=== PATIENT | female | born 1955 | race Caucasian/White ===

== ENCOUNTER → 2016-06-07 | Outpatient (CLI) | payer BC ==
[2016-06-07 10:18] VITALS: BP 123/72; PULSE 75; TEMP 98.5; BMI 29.0
--- NOTE | 2016-06-07 10:52 | P.GSHP ---
History of Present Illness H&P Date: 06/07/16 Chief Complaint: S/P lap RYGB Status post gastric bypass, BMI 29 60 years old female with morbid obesity , BMI 29.6, height 5 feet 3.5inches, weight 77kg status post laparoscopic Maria Del Carmen-en-Y gastric bypass and primary hiatal hernia repair. Postoperative GI bleeding and upper endoscopy showed patent anastomosis without any ulcers or active bleeding. She has received iron infusion therapy as outpatient and reports no fatique. No bloody bowel movements. She is tolerating diet. She has occasional diarrhea, no blood in stool. Known history of irritable bowel syndrome Her comorbid conditions include obstructive sleep apnea on CPAP, varicose veins bilateral lower extremities, hypercholesterolemia, GERD on proton pump inhibitor for 10 years( now resolved), bilateral knee replacement secondary to arthritis and depression. She lives at home with her and one child. Works with handicapped students. Vitamin A deficiency - On oral replacement [place] body weight: 53.29 KG Height 5 feet 3.5 inches Preoperative visit #1, 05/12/2015, weight 110.79 KG, BMI 42.6 Preoperative visit #2 07/21/2015, weight 101.1 KG, BMI 42.7 Preoperative visit #3 09/22/2015, weight 101.1KG, BMI 42.7 Laparoscopic Maria Del Carmen-en-Y gastric bypass on 10/04/2015 Postoperative visit #1 10/13/2015, weight 103 KG,BMI 39.6 Postoperative visit #2 10/27/2015, weight 98.5KG,BMI 37.9 Postoperative visit #3 04/12/2016, weight 77.065 KG, BMI 29.6 Postoperative visit #4 06/07/2015, weight 75.5KG, BMI 29 - Review of Systems Comment: Constitutional: Denies fever or loss of appetite HEENT: No difficulty in vision or hearing. Denies dysphagia. Cardiovascular: Denies chest pain, palpitations, dizziness, shortness of breath. Respiratory: No asthma or shortness of breath. Wears CPAP Gastrointestinal: Gastroesophageal reflux symptoms well controlled Integumentary: Known varicose veins. No ulcers Genitourinary: No urinary incontinence, hematuria or dysuria Neurologic: No seizures, denies weakness in upper or lower extremities Musculoskeletal: Status post bilateral knee replacements. Slightly restricted range of motion Psychiatry: Known history of depression, no suicidal ideation, no anxiety or psychosis Past Medical History Past Medical History: GERD/Reflux, GI Bleed, Hyperlipidemia, Osteoarthritis (OA) , Skin Disorder, Sleep Apnea/CPAP/BIPAP Additional Past Medical History / Comment(s): Migraines, IBS, Eczema, uses CPAP. SL BLEEDING IN STOOL POST-OP 09/2015. History of Any Multi-Drug Resistant Organisms: None Reported Past Surgical History: Bariatric Surgery, Breast Surgery, Cholecystectomy, Hernia Repair, Joint Replacement, Orthopedic Surgery, Tonsillectomy Additional Past Surgical History / Comment(s): LASER PROCEDURE FOR GLAUCOMA. BEBETO KNEE REPLACEMENT. RIGHT BREAST BIOPSY. ESOPHAGEAL DILITATION. KIDNEY STONE REMOVED. GASTRIC BYPASS 10/04/15, MARIA DEL CARMEN-EN-Y. Past Anesthesia/Blood Transfusion Reactions: No Reported Reaction Additional Past Anesthesia/Blood Transfusion Reaction / Comment(s): Spinal Headache Past Psychological History: Depression Smoking Status: Never smoker Past Alcohol Use History: None Reported Past Drug Use History: None Reported - Past Family History Mother Family Medical History: No Reported History Medications and Allergies Home Medications Medication Instructions Recorded Confirmed Type Multivitamins, Thera [Multivitamin] 1 tab PO DAILY 01/19/16 06/07/16 History Vitamin A 8,000 unit PO DAILY 02/01/16 06/07/16 History Vitamin B Complex 1 each PO DAILY 02/01/16 06/07/16 History ALPRAZolam [Xanax] 0.25 mg PO DAILY PRN 02/02/16 06/07/16 History Calcium Carbonate [Calcium] 600 mg PO DAILY 02/02/16 06/07/16 History DULoxetine HCL [Cymbalta] 1 tab PO DAILY 06/07/16 06/07/16 History Allergies Allergy/AdvReac Type Severity Reaction Status Date / Time No Known Allergies Allergy Verified 06/07/16 10:12 Surgical - Exam Vital Signs Temp Pulse BP 98.5 F 75 123/72 06/07/16 10:15 06/07/16 10:15 06/07/16 10:15 General: Patient is alert and oriented to time, place and person and cooperative with exam. She is not in acute distress. HEENT: Mild pallor, no icterus, no thyroid enlargement, no cervical lymphadenopathy. Chest: Bilateral equal breath sounds present. No wheezes, no crackles. Cardiovascular: Regular rate and rhythm. Abdomen: Soft, nontender, nondistended. No right upper quadrant tenderness. Well-healed surgical scars . No surgical site infection. Lower abdomen pannus Integumentary: Bilateral lower extremity varicose veins. No active ulcers or discharge. Neurologic: Cranial nerves II-XII intact. Strength upper and lower extremities 5/5. No focal neurologic deficits. Gait is normal. Psychiatric: No anxiety or psychosis. No suicidal thoughts. s Assessment and Plan (1) Arthritis Status: Acute (2) Depression Status: Acute (3) Hypercholesteremia Status: Acute (4) Obstructive sleep apnea of adult Status: Acute Plan: 1. Bariatric post op diet. Continue protein shakes 2. Try bariatric advantage MVI 3. Increase physical activity as tolerated 4. Follow up in 3 months with repeat lab draw
== END | disposition home or self-care (01) ==
LOC: BARWHC3 09:59
PROVIDERS: ATTEND Surgery
DX: Z48.815 Encounter for surgical aftercare following surgery on the digestive system (principal); Z98.84 Bariatric surgery status; Z68.29 Body mass index [BMI] 29.0-29.9, adult; G47.33 Obstructive sleep apnea (adult) (pediatric); Z99.89 Dependence on other enabling machines and devices; K58.9 Irritable bowel syndrome, unspecified; E50.9 Vitamin A deficiency, unspecified; K58.0 Irritable bowel syndrome with diarrhea; F32.9 Major depressive disorder, single episode, unspecified
CPT/HCPCS: 99211

== ENCOUNTER → 2016-09-22 | Outpatient (CLI) | payer OTHER ==
[2016-09-22 10:12] LABS: CH 29.3; CHCM 32.1; HCT 39.2 % (34.0-46.0); HDW 2.12; HGB 12.5 gm/dL (11.4-16.0); MCH 29.2 pg (25.0-35.0); MCHC 31.9 g/dL (31.0-37.0); MCV 91.5 fL (80.0-100.0); Mean Platelet Volume 8.1; RBC 4.29 m/uL (3.80-5.40); RDW 13.8 % (11.5-15.5); WBC 5.3 k/uL (3.8-10.6)
[2016-09-22 13:43] LABS: ALT 54 U/L (9-52); AST 39 U/L (14-36); Alkaline Phosphatase 88 U/L (38-126); Anion Gap 8 mmol/L; Blood Urea Nitrogen 16 mg/dL (7-17); Calcium 9.4 mg/dL (8.4-10.2); Carbon Dioxide 28 mmol/L (22-30); Chloride 108 mmol/L (98-107); Glucose 90 mg/dL (74-99); Iron 108 ug/dL (37-170); Non-African American GFR(MDRD) >60 (>60 ml/min/1.73 sqM); Potassium 4.6 mmol/L (3.5-5.1); Sodium 144 mmol/L (137-145); Total Bilirubin 2.4 mg/dL (0.2-1.3); Total Protein 6.7 g/dL (6.3-8.2)
[2016-09-22 14:00] LABS: % Iron Saturation 33.9 % (20-50); Total Iron Binding Capacity 319 ug/dL (265-497)
[2016-09-22 14:35] LABS: Vitamin B12 628 pg/mL (239-931)
== END | disposition home or self-care (01) ==
LOC: LABWHC1 09:41
PROVIDERS: ATTEND Surgery
DX: E66.01 Morbid (severe) obesity due to excess calories (principal); E44.0 Moderate protein-calorie malnutrition; E55.9 Vitamin D deficiency, unspecified
CPT/HCPCS: 36415; 80053; 82306; 82607; 82728; 83540; 83550; 84425; 84443; 84590; 85027

== ENCOUNTER 2016-10-02 08:44 | Emergency (ER) | payer OTHER ==
[2016-10-02 08:50] VITALS: BP 108/57; PULSE 73; RESP 20; TEMP 97.8
[2016-10-02] MEDS ORDERED: SODIUM CHLORIDE 0.9% 2,000 ML IV STA (09:00)
--- NOTE | 2016-10-02 09:07 | ED ---
Nausea/Vomiting/Diarrhea HPI - General Chief complaint: Nausea/Vomiting/Diarrhea Stated complaint: poss dehydration Time Seen by Provider: 10/02/16 08:53 Source: patient, RN notes reviewed Mode of arrival: ambulatory Limitations: no limitations - History of Present Illness Initial comments: This a 61-year-old female presents emergency Department with chief complaint of diarrhea. She states the last 8 days that she's had severe diarrhea she states at the beginning she was having 20 some episodes daily. She was started on Lomotil and Cipro by her PCP for 5 days ago and was states that has slowed her down to approximate 7-8 episodes daily but states that she still having symptoms. Patient was seen in the ER at [facility] had a CAT scan, lab work and stool studies and which they came back negative for C. diff what they're still pending cultures. Patient denies any antibiotic use prior to starting diarrhea and denies any traveling. She denies any dysuria or hematuria persisted decreased urine output. Patient was advised, emergency department today by PCP for possible dehydration. Patient states that she had a Maria Del Carmen-en-Y surgery by Dr. Ramirez one year ago and she has a follow-up appointment on Sunday. Patient denies fever, chills. Patient also had a prior cholecystectomy and has a history of IBS. - Related Data Home Medications Medication Instructions Recorded Confirmed Multivitamins, Thera [Multivitamin] 1 tab PO DAILY 01/19/16 10/02/16 Vitamin B Complex 1 cap PO DAILY 02/01/16 10/02/16 ALPRAZolam [Xanax] 0.125 - 0.25 mg PO BID PRN 02/02/16 10/02/16 DULoxetine HCL [Cymbalta] 60 mg PO DAILY 06/07/16 10/02/16 Calcium/Magnesium/Zinc 1 tab PO BID 10/02/16 10/02/16 [Xcseebd-Fzteycktx-Ecvx Tablet] Ciprofloxacin HCl [Cipro] 500 mg PO Q12HR 10/02/16 10/02/16 Cyanocobalamin (Vitamin B-12) 1,000 mcg PO DAILY 10/02/16 10/02/16 [Vitamin B-12] Diphenox-Atrop 2.5-0.025 mg 2 tab PO QID PRN 10/02/16 10/02/16 [Lomotil] Ondansetron [Zofran ODT] 8 mg PO Q8HR PRN 10/02/16 10/02/16 Vitamin A 10,000 unit PO DAILY 10/02/16 10/02/16 Previous Rx's Medication Instructions Recorded Azithromycin [Zithromax Z-pack] 0 mg PO DIRECTED #1 pack 10/02/16 Allergies Allergy/AdvReac Type Severity Reaction Status Date / Time No Known Allergies Allergy Verified 10/02/16 09:30 Review of Systems ROS Statement: Those systems with pertinent positive or pertinent negative responses have been documented in the HPI. ROS Other: All systems not noted in ROS Statement are negative. Past Medical History Past Medical History: GERD/Reflux, GI Bleed, Hyperlipidemia, Osteoarthritis (OA) , Skin Disorder, Sleep Apnea/CPAP/BIPAP Additional Past Medical History / Comment(s): Migraines, IBS, Eczema, uses CPAP. SL BLEEDING IN STOOL POST-OP 09/2015. History of Any Multi-Drug Resistant Organisms: None Reported Past Surgical History: Bariatric Surgery, Breast Surgery, Cholecystectomy, Hernia Repair, Joint Replacement, Orthopedic Surgery, Tonsillectomy Additional Past Surgical History / Comment(s): LASER PROCEDURE FOR GLAUCOMA. BEBETO KNEE REPLACEMENT. RIGHT BREAST BIOPSY. ESOPHAGEAL DILITATION. KIDNEY STONE REMOVED. GASTRIC BYPASS 10/04/15, MARIA DEL CARMEN-EN-Y. Past Anesthesia/Blood Transfusion Reactions: No Reported Reaction Additional Past Anesthesia/Blood Transfusion Reaction / Comment(s): Spinal Headache Past Psychological History: Depression Smoking Status: Never smoker Past Alcohol Use History: None Reported Past Drug Use History: None Reported - Past Family History Mother Family Medical History: No Reported History General Exam Limitations: no limitations General appearance: alert, in no apparent distress Neck exam: Present: normal inspection. Absent: tenderness, meningismus, lymphadenopathy Respiratory exam: Present: normal lung sounds bilaterally. Absent: respiratory distress, wheezes, rales, rhonchi, stridor Cardiovascular Exam: Present: regular rate, normal rhythm, normal heart sounds. Absent: systolic murmur, diastolic murmur, rubs, gallop, clicks GI/Abdominal exam: Present: soft, normal bowel sounds. Absent: distended, tenderness, guarding, rebound, rigid Back exam: Absent: CVA tenderness (R), CVA tenderness (L) Skin exam: Present: warm, dry, intact, normal color. Absent: rash Course Vital Signs 10/02/16 08:47 Temperature 97.8 F Pulse Rate 73 Respiratory 20 Rate Blood Pressure 108/57 O2 Sat by Pulse 99 Oximetry Medical Decision Making - Medical Decision Making I did obtain the records from [facility] and which she was positive for Campylobacter. Patient was placed on azithromycin as sometimes is resistant fluoroquinolones Patient will increase her fluids as she's been doing and follow-up with her surgeon on Sunday. Return parameters discussed. - Lab Data Result diagrams: 10/02/16 09:09 10/02/16 09:09 Lab Results 10/02/16 10/02/16 Range/Units 09:09 09:09 WBC 8.9 (3.8-10.6) k/uL RBC 4.90 (3.80-5.40) m/uL Hgb 14.2 (11.4-16.0) gm/dL Hct 43.6 (34.0-46.0) % MCV 89.0 (80.0-100.0) fL MCH 29.0 (25.0-35.0) pg MCHC 32.5 (31.0-37.0) g/dL RDW 13.5 (11.5-15.5) % Plt Count 353 (150-450) k/uL Neutrophils % 59 % Lymphocytes % 28 % Monocytes % 5 % Eosinophils % 5 % Basophils % 1 % Neutrophils # 5.3 (1.3-7.7) k/uL Lymphocytes # 2.5 (1.0-4.8) k/uL Monocytes # 0.5 (0-1.0) k/uL Eosinophils # 0.4 (0-0.7) k/uL Basophils # 0.1 (0-0.2) k/uL Sodium 145 (137-145) mmol/L Potassium 4.3 (3.5-5.1) mmol/L Chloride 109 H (98-107) mmol/L Carbon Dioxide 24 (22-30) mmol/L Anion Gap 12 mmol/L BUN 12 (7-17) mg/dL Creatinine 0.79 (0.52-1.04) mg/dL Est GFR (MDRD) Af Amer >60 (>60 ml/min/1.73 sqM) Est GFR (MDRD) Non-Af >60 (>60 ml/min/1.73 sqM) Glucose 93 (74-99) mg/dL Calcium 9.6 (8.4-10.2) mg/dL Total Bilirubin 1.3 (0.2-1.3) mg/dL AST 30 (14-36) U/L ALT 39 (9-52) U/L Alkaline Phosphatase 104 (38-126) U/L Total Protein 7.3 (6.3-8.2) g/dL Albumin 4.0 (3.5-5.0) g/dL Amylase 31 (30-110) U/L Lipase 133 (23-300) U/L Disposition Clinical Impression: Food poisoning, Campylobacter diarrhea Disposition: HOME SELF-CARE Condition: Stable Instructions: Acute Diarrhea (ED) Additional Instructions: Please return to the Emergency Department if symptoms worsen or any other concerns. Prescriptions: Azithromycin [Zithromax Z-pack] 0 mg PO DIRECTED #1 pack Referrals: Mik Hong MD [Primary Care Provider] - 1-2 days Time of Disposition: 11:13
[2016-10-02 09:21] LABS: Basophils # (A) 0.1 k/uL (0-0.2); Basophils % (A) 1 %; CH 29.6; CHCM 33.5; Eosinophils # (A) 0.4 k/uL (0-0.7); Eosinophils % (A) 5 %; HCT 43.6 % (34.0-46.0); HDW 2.65; HGB 14.2 gm/dL (11.4-16.0); Luc # (Auto) 0.26; Luc % (Auto) 3; Lymphocytes # (A) 2.5 k/uL (1.0-4.8); Lymphocytes % (A) 28 %; MCHC 32.5 g/dL (31.0-37.0); Mean Platelet Volume 7.1; Monocytes # (A) 0.5 k/uL (0-1.0); Monocytes % (A) 5 %; Neutrophils # (A) 5.3 k/uL (1.3-7.7); Neutrophils % (A) 59 %; RDW 13.5 % (11.5-15.5); WBC 8.9 k/uL (3.8-10.6); WBC (Perox) 8.66
[2016-10-02 09:32] LABS: ALT 39 U/L (9-52); AST 30 U/L (14-36); Alkaline Phosphatase 104 U/L (38-126); Amylase 31 U/L (30-110); Anion Gap 12 mmol/L; Blood Urea Nitrogen 12 mg/dL (7-17); Calcium 9.6 mg/dL (8.4-10.2); Carbon Dioxide 24 mmol/L (22-30); Chloride 109 mmol/L (98-107); Glucose 93 mg/dL (74-99); Non-African American GFR(MDRD) >60 (>60 ml/min/1.73 sqM); Potassium 4.3 mmol/L (3.5-5.1); Sodium 145 mmol/L (137-145); Total Bilirubin 1.3 mg/dL (0.2-1.3); Total Protein 7.3 g/dL (6.3-8.2)
== END 2016-10-02 11:28 | disposition home or self-care (01) ==
LOC: EC 08:44
DX: A04.5 Campylobacter enteritis (principal); T62.8X1A Toxic effect of other specified noxious substances eaten as food, accidental (unintentional), initial encounter; F32.9 Major depressive disorder, single episode, unspecified; Z79.899 Other long term (current) drug therapy; Z90.49 Acquired absence of other specified parts of digestive tract
CPT/HCPCS: 36415; 80053; 82150; 83690; 85025; 96360; 96361; 99284

== ENCOUNTER → 2016-10-04 | Outpatient (CLI) | payer BC, OTHER ==
[2016-10-04 08:26] VITALS: BP 111/74; PULSE 65; RESP 16; TEMP 97.4; BMI 26.5
--- NOTE | 2016-10-04 10:30 | P.GSHP ---
History of Present Illness H&P Date: 10/04/16 Chief Complaint: Diarrhea 61 years old female with h/o morbid obesity , BMI 26.5, height 5 feet 3.5inches , weight 69kg status post laparoscopic Maria Del Carmen-en-Y gastric bypass and primary hiatal hernia repair 09/2015 Postoperative GI bleeding and upper endoscopy showed patent anastomosis without any ulcers or active bleeding. She has received iron infusion therapy as outpatient .Known history of irritable bowel syndrome Her comorbid conditions include obstructive sleep apnea on CPAP- resolved , varicose veins bilateral lower extremities, hypercholesterolemia- resolved , GERD on proton pump inhibitor for 10 years( now resolved), bilateral knee replacement secondary to arthritis and depression. She lives at home with her and one child. Works with handicapped students. New onset diarrhea >15 episodes /day. recently went to ER. C. diff negative. Treated with oral cipro and Azithromycin. Diarrhea is resolving. No blood in stool. [place] body weight: 53.29 KG Height 5 feet 3.5 inches Preoperative visit #1, 05/12/2015, weight 110.79 KG, BMI 42.6 Preoperative visit #2 07/21/2015, weight 101.1 KG, BMI 42.7 Preoperative visit #3 09/22/2015, weight 101.1KG, BMI 42.7 Laparoscopic Maria Del Carmen-en-Y gastric bypass on 10/04/2015 Postoperative visit #1 10/13/2015, weight 103 KG,BMI 39.6 Postoperative visit #2 10/27/2015, weight 98.5KG,BMI 37.9 Postoperative visit #3 04/12/2016, weight 77.065 KG, BMI 29.6 Postoperative visit #4 06/07/2015, weight 75.5KG, BMI 29 Postoperative visit #5 10/04/2016, weight 69 KG, BMI 26.5 . - Review of Systems Comment: Constitutional: Denies fever or loss of appetite HEENT: No difficulty in vision or hearing. Denies dysphagia. Cardiovascular: Denies chest pain, palpitations, dizziness, shortness of breath. Respiratory: No asthma or shortness of breath. Wears CPAP Gastrointestinal: Gastroesophageal reflux symptoms well controlled Integumentary: Known varicose veins. No ulcers Genitourinary: No urinary incontinence, hematuria or dysuria Neurologic: No seizures, denies weakness in upper or lower extremities Musculoskeletal: Status post bilateral knee replacements. Slightly restricted range of motion Psychiatry: Known history of depression, no suicidal ideation, no anxiety or psychosis Past Medical History Past Medical History: GERD/Reflux, GI Bleed, Hyperlipidemia, Osteoarthritis (OA) , Skin Disorder, Sleep Apnea/CPAP/BIPAP Additional Past Medical History / Comment(s): Migraines, IBS, Eczema, uses CPAP. SL BLEEDING IN STOOL POST-OP 09/2015. History of Any Multi-Drug Resistant Organisms: None Reported Past Surgical History: Bariatric Surgery, Breast Surgery, Cholecystectomy, Hernia Repair, Joint Replacement, Orthopedic Surgery, Tonsillectomy Additional Past Surgical History / Comment(s): LASER PROCEDURE FOR GLAUCOMA. BEBETO KNEE REPLACEMENT. RIGHT BREAST BIOPSY. ESOPHAGEAL DILITATION. KIDNEY STONE REMOVED. GASTRIC BYPASS 10/04/15, MARIA DEL CARMEN-EN-Y. Past Anesthesia/Blood Transfusion Reactions: No Reported Reaction Additional Past Anesthesia/Blood Transfusion Reaction / Comment(s): Spinal Headache Past Psychological History: Depression Smoking Status: Never smoker - Past Family History Mother Family Medical History: No Reported History Medications and Allergies Home Medications Medication Instructions Recorded Confirmed Type Multivitamins, Thera [Multivitamin] 1 tab PO DAILY 01/19/16 10/02/16 History Vitamin B Complex 1 cap PO DAILY 02/01/16 10/02/16 History ALPRAZolam [Xanax] 0.125 - 0.25 mg PO BID PRN 02/02/16 10/02/16 History DULoxetine HCL [Cymbalta] 60 mg PO DAILY 06/07/16 10/02/16 History Calcium/Magnesium/Zinc 1 tab PO BID 10/02/16 10/02/16 History [Nvoswwd-Cxayvuqba-Duzf Tablet] Ciprofloxacin HCl [Cipro] 500 mg PO Q12HR 10/02/16 10/02/16 History Cyanocobalamin (Vitamin B-12) 1,000 mcg PO DAILY 10/02/16 10/02/16 History [Vitamin B-12] Diphenox-Atrop 2.5-0.025 mg 2 tab PO QID PRN 10/02/16 10/02/16 History [Lomotil] Ondansetron [Zofran ODT] 8 mg PO Q8HR PRN 10/02/16 10/02/16 History Vitamin A 10,000 unit PO DAILY 10/02/16 10/02/16 History Allergies Allergy/AdvReac Type Severity Reaction Status Date / Time No Known Allergies Allergy Verified 10/02/16 09:30 Surgical - Exam Vital Signs Temp Pulse Resp BP 97.4 F L 65 16 111/74 10/04/16 08:24 10/04/16 08:24 10/04/16 08:24 10/04/16 08:24 General: Patient is alert and oriented to time, place and person and cooperative with exam. She is not in acute distress. HEENT: Mild pallor, no icterus, no thyroid enlargement, no cervical lymphadenopathy. Chest: Bilateral equal breath sounds present. No wheezes, no crackles. Cardiovascular: Regular rate and rhythm. Abdomen: Soft, nontender, nondistended. No right upper quadrant tenderness. Well-healed surgical scars . No surgical site infection. Lower abdomen pannus. No panniculitis Integumentary: Bilateral lower extremity varicose veins. No active ulcers or discharge. Neurologic: Cranial nerves II-XII intact. Strength upper and lower extremities 5/5. No focal neurologic deficits. Gait is normal. Psychiatric: No anxiety or psychosis. No suicidal thoughts Assessment and Plan (1) Arthritis Status: Acute (2) Food poisoning Status: Acute (3) Depression Status: Acute (4) Overweight (BMI 25.0-29.9) Status: Acute Plan: 1. Status postoperative laparoscopic Maria Del Carmen-en-Y gastric bypass 2. Patient is holding off protein secondary to diarrhea at this time. Diarrhea is most likely infectious in origin. Resume bariatric diet once diarrhea has resolved 3. Increase water intake for hydration 4. Increase physical activity as tolerated 5. Continue daily multivitamin 6. Bilateral screening mammogram 7. Repeat CBC, CMP vitamin and mineral levels in 1 year. 8. Encourage attending bariatric support group meeting 9. Follow up in 1 year
== END | disposition home or self-care (01) ==
LOC: BARWHC3 07:55
PROVIDERS: ATTEND Surgery
DX: Z48.815 Encounter for surgical aftercare following surgery on the digestive system (principal); E66.3 Overweight; Z68.26 Body mass index [BMI] 26.0-26.9, adult; Z71.3 Dietary counseling and surveillance; Z98.84 Bariatric surgery status; Z79.899 Other long term (current) drug therapy; F32.9 Major depressive disorder, single episode, unspecified; R19.7 Diarrhea, unspecified; G47.30 Sleep apnea, unspecified; Z99.89 Dependence on other enabling machines and devices; E78.5 Hyperlipidemia, unspecified; M17.0 Bilateral primary osteoarthritis of knee; Z96.653 Presence of artificial knee joint, bilateral
CPT/HCPCS: 97803; 99211

== ENCOUNTER → 2016-12-04 | Outpatient (CLI) | payer OTHER ==
--- NOTE | 2016-12-05 09:07 | MM ---
Reason for exam: screening (asymptomatic). Last mammogram was performed 1 year and 2 months ago. History: Patient is postmenopausal. Benign MG stereo VAD BX RT of the right breast, September 11, 2014. Physical Findings: A clinical breast exam by your physician is recommended on an annual basis and results should be correlated with mammographic findings. MG Screening Mammo w CAD Bilateral CC and MLO view(s) were taken. Prior study comparison: October 01, 2015, bilateral MG screening mammo w CAD. June 01, 2015, right breast MG 3d diag mammo w/cad RT. The breast tissue is heterogeneously dense. This may lower the sensitivity of mammography. There is no discrete abnormality. No significant changes when compared with prior studies. ASSESSMENT: Negative, BI-RAD 1 RECOMMENDATION: Routine screening mammogram of both breasts in 1 year.
== END | disposition home or self-care (01) ==
LOC: RADMAMWWP 07:48
PROVIDERS: ATTEND Family Medicine
DX: Z12.31 Encounter for screening mammogram for malignant neoplasm of breast (principal)

== ENCOUNTER → 2018-03-27 | Outpatient (CLI) | payer OTHER ==
[2018-03-27 17:19] VITALS: BP 152/82; PULSE 69; RESP 16; TEMP 98; BMI 28.0
--- NOTE | 2018-03-27 17:46 | P.PN ---
Subjective Progress Note Date: 03/27/18 HPI: She comes in with liquid stools from a gastric bypass. Las time seen by Dr. Haro was 1.5 years ago. She feels full after eating. Highest weight of 248 pounds. Lowest weight of 152 pounds after surgery. She reports gas bloat and early satiety. Gaseous distention. She reports stinky gas. Her surgery was 2016. She has IBS. Gallbladder is gone. Last colonoscopy by Dr. Ramirez no polyps. Her mother had colitis. Her brother had colon. No blood in stools. Dinner last night of chili and dog with mustard and had water. No diarrhea. She has diarrhea 3 to 5 x daily. Morning she would have normal bowel movement ABDOMEN: PLAN: 1. Colonoscopy for colitis 2. Gluten allergy 3. Upper scope for gluten and celiac 4. Get labs 5. Stool assay Objective - Vital Signs Vital signs: Vital Signs Temp 98 F 03/27/18 17:16 Pulse 69 03/27/18 17:16 Resp 16 03/27/18 17:16 BP 152/82 03/27/18 17:16 Pulse Ox Intake & Output 03/26/18 03/27/18 03/27/18 18:59 06:59 18:59 Weight 73.028 kg
== END ==
LOC: BARWHC3 15:46
PROVIDERS: ATTEND Surgery Plastic and Reconstructive Surgery
DX: K95.89 Other complications of other bariatric procedure (principal)
CPT/HCPCS: 99211

== ENCOUNTER 2018-04-22 09:42 | Day surgery (SDC) | payer BC, OTHER ==
[2018-04-17 14:35] VITALS: BMI 28.0
--- NOTE | 2018-04-22 06:14 | P.GSHP ---
History of Present Illness H&P Date: 04/22/18 CHIEF COMPLAINT: GERD and colitis HISTORY OF PRESENT ILLNESS: The patient is a 62-year-old female who presents with gastroesophageal reflux disease and colitis. Upper and lower endoscopy were offered for further evaluation and management. PAST MEDICAL HISTORY: Please see list. PAST SURGICAL HISTORY: Please see list. MEDICATIONS: Please see list. ALLERGIES: Please see list. SOCIAL HISTORY: No illicit drug use FAMILY HISTORY: Positive for ulcerative colitis. REVIEW OF ORGAN SYSTEMS: CONSTITUTIONAL: No reports of fevers or chills. PHYSICAL EXAM: VITAL SIGNS: Stable GENERAL: Well-developed pleasant in no acute distress. HEENT: No scleral icterus. Extraocular movements grossly intact. Moist buccal mucosa. NECK: Supple without lymphadenopathy. CHEST: Unlabored respirations. Equal bilateral excursions. CARDIOVASCULAR: Regular rate and rhythm. Distal 2+ pulses. ABDOMEN: Soft, nondistended. MUSCULOSKELETAL: No clubbing, cyanosis, or edema. ASSESSMENT: 1. Gastroesophageal reflux disease 2. Colitis PLAN: 1. Recommend proceeding with an upper and lower endoscopy Past Medical History Past Medical History: GERD/Reflux, GI Bleed, Hyperlipidemia, Osteoarthritis (OA) , Skin Disorder, Sleep Apnea/CPAP/BIPAP Additional Past Medical History / Comment(s): Migraines, IBS, Eczema, uses CPAP. SL BLEEDING IN STOOL POST-OP 09/2015. History of Any Multi-Drug Resistant Organisms: None Reported Past Surgical History: Bariatric Surgery, Breast Surgery, Cholecystectomy, Hernia Repair, Joint Replacement, Orthopedic Surgery, Tonsillectomy Additional Past Surgical History / Comment(s): LASER PROCEDURE FOR GLAUCOMA. BEBETO KNEE REPLACEMENT. RIGHT BREAST BIOPSY. ESOPHAGEAL DILITATION. KIDNEY STONE REMOVED. GASTRIC BYPASS 10/04/15, LALO-EN-Y. Past Anesthesia/Blood Transfusion Reactions: No Reported Reaction Additional Past Anesthesia/Blood Transfusion Reaction / Comment(s): Spinal Headache Smoking Status: Never smoker - Past Family History Mother Family Medical History: No Reported History Medications and Allergies Home Medications Medication Instructions Recorded Confirmed Type Multivitamins, Thera [Multivitamin] 1 tab PO DAILY 01/19/16 04/17/18 History ALPRAZolam [Xanax] 0.125 - 0.25 mg PO BID PRN 02/02/16 04/17/18 History DULoxetine HCL [Cymbalta] 60 mg PO QAM 06/07/16 04/17/18 History Allergies Allergy/AdvReac Type Severity Reaction Status Date / Time No Known Allergies Allergy Verified 04/17/18 14:33
[~2018-04-22 09:42] MED LIST: LACTATED RINGERS 1,000 ML IV SCH; LIDOCAINE 1% 20 ML VIAL (10MG/ML) FOR IV START INTRADERMA PRN
[2018-04-22 10:18] VITALS: RESP 16; TEMP 96.8
[2018-04-22] MEDS ORDERED: PROPOFOL 10 MG/ML 20 ML VIAL IV ONE (11:18)
--- NOTE | 2018-04-22 11:39 | P.PCN ---
Date of Procedure: 04/22/18 Description of Procedure: PREOPERATIVE DIAGNOSIS: Colitis with frequent diarrhea Family history of colitis POSTOPERATIVE DIAGNOSIS: Colitis with frequent diarrhea Family history of colitis OPERATION: Colonoscopy with random cold forceps biopsy Colonoscopy to the ileocecal valve and appendiceal orifice. SURGEON: Adelaide Gordon MD. ANESTHESIA: MAC. INDICATIONS: The patient is a 62-year-old female who presents with change in bowel habits and family history of colitis. Benefits and risks were described and informed consent was obtained. DESCRIPTION OF PROCEDURE: The patient had undergone Gatorade, MiraLAX and Dulcolax prep. She had been brought into the operating room and laid in the left lateral decubitus position. After adequate intravenous sedation, the rectum was examined with 2% lidocaine jelly. No external hemorrhoids were encountered. The rectal tone was within normal limits. No lesions were palpated in the rectal vault. An Olympus colonoscope was advanced until the ileocecal valve and appendiceal orifice were clearly viewed. The prep was excellent with clear visualization of the mucosal folds. The scope was removed with visualization of each mucosal fold. No scattered diverticulosis was encountered. No colonic polyps were found. Random biopsies were obtained for microscopic colitis. Retroflexion of the scope demonstrated grade 1 internal hemorrhoids without active bleeding or inflammation. The colon was desufflated. The patient had tolerated the procedure well. Withdrawal time was over 6 minutes. FINDINGS: Internal hemorrhoids, grade 1 No external prolapsed hemorrhoids. No arteriovenous malformations. No adenomatous polyps. No sigmoid diverticulosis Random biopsies were obtained for microscopic colitis. RECOMMENDATIONS: Lower endoscopy in 5 years2023 Plan - Discharge Summary New Discharge Prescriptions: No Action Multivitamins, Thera [Multivitamin] 1 tab PO DAILY ALPRAZolam [Xanax] 0.125 - 0.25 mg PO BID PRN PRN Reason: Anxiety DULoxetine HCL [Cymbalta] 60 mg PO QAM Discharge Medication List Multivitamins, Thera [Multivitamin] 1 tab PO DAILY 01/19/16 [History] ALPRAZolam [Xanax] 0.125 - 0.25 mg PO BID PRN 02/02/16 [History] DULoxetine HCL [Cymbalta] 60 mg PO QAM 06/07/16 [History]
[2018-04-22 12:38] VITALS: BP 115/72; PULSE 69
== END 2018-04-22 12:36 | disposition home or self-care (01) ==
LOC: ORWHC2ENDO 09:42
PROVIDERS: ATTEND Surgery Plastic and Reconstructive Surgery
DX: K64.0 First degree hemorrhoids (principal); K58.0 Irritable bowel syndrome with diarrhea; Z87.19 Personal history of other diseases of the digestive system; Z83.79 Family history of other diseases of the digestive system; K21.9 Gastro-esophageal reflux disease without esophagitis; E78.5 Hyperlipidemia, unspecified; M19.90 Unspecified osteoarthritis, unspecified site; G47.33 Obstructive sleep apnea (adult) (pediatric); G43.909 Migraine, unspecified, not intractable, without status migrainosus; L30.9 Dermatitis, unspecified; Z79.899 Other long term (current) drug therapy; Z99.89 Dependence on other enabling machines and devices; Z98.84 Bariatric surgery status; Z96.653 Presence of artificial knee joint, bilateral; Z90.49 Acquired absence of other specified parts of digestive tract; Z87.442 Personal history of urinary calculi
CPT/HCPCS: 88305; 45380; J2704

== ENCOUNTER → 2019-03-12 | Outpatient (CLI) | payer BC ==
--- NOTE | 2019-03-12 13:09 | MM ---
Reason for exam: screening (asymptomatic). Last mammogram was performed 2 years and 3 months ago. History: Patient is postmenopausal. Benign MG stereo VAD BX RT of the right breast, September 11, 2014. Physical Findings: A clinical breast exam by your physician is recommended on an annual basis and results should be correlated with mammographic findings. MG Screening Mammo w CAD Bilateral CC and MLO view(s) were taken. Prior study comparison: December 04, 2016, bilateral MG screening mammo w CAD. October 01, 2015, bilateral MG screening mammo w CAD. The breast tissue is heterogeneously dense. This may lower the sensitivity of mammography. Previous mammotome biopsy in the right breast. There is chronic nodularity bilaterally. There is no discrete abnormality. ASSESSMENT: Benign, BI-RAD 2 RECOMMENDATION: Routine screening mammogram of both breasts in 1 year.
== END ==
LOC: RADMAMWWP 11:00
PROVIDERS: ATTEND Family Medicine
DX: Z12.31 Encounter for screening mammogram for malignant neoplasm of breast (principal)
CPT/HCPCS: 77067

== ENCOUNTER → 2019-05-07 | Outpatient (CLI) | payer BC ==
--- NOTE | 2019-05-07 13:33 | CT ---
EXAMINATION TYPE: CT brain wo con DATE OF EXAM: 05/07/2019 COMPARISON: HISTORY: Dizziness CT DLP: 1036.00 mGycm Automated exposure control for dose reduction was used. Helical imaging through the brain using depar tmental protocol FINDINGS: There is an air-fluid level in the right maxillary sinus. Calvarium is intact. There is no hemorrhage or hydrocephalus. Mild atrophy is likely due to age-related change. IMPRESSION: NO ACUTE ABNORMALITIES EVIDENT.
== END | disposition home or self-care (01) ==
LOC: RADCTMAIN 12:27
PROVIDERS: ATTEND Nurse Practitioner Adult Health
DX: R42 Dizziness and giddiness (principal); G40.909 Epilepsy, unspecified, not intractable, without status epilepticus
CPT/HCPCS: 36415; 70450

== ENCOUNTER → 2019-05-09 | Outpatient (CLI) | payer BC ==
--- NOTE | 2019-05-12 08:24 | EEG ---
ELECTROENCEPHALOGRAM REPORT PROCEDURE DATE: 05/09/2019 ELECTROENCEPHALOGRAM (EEG) REPORT: TECHNIQUE: A routine 18 channel EEG was performed with video using the 10/20 international electrode placement system. HISTORY: Episode on 05/07/2019 where patient was working and started having an unusual feeling. Patient could not focus and felt like she was going to pass out. [place] like her head was jerking to the right. Other medical history includes headaches. CURRENT MEDICATIONS: Multivitamin, ropinirole, Cymbalta. STUDY DURATION: 25 minutes. FINDINGS: BACKGROUND: The background activity consists of 8-9 hertz rhythmic waveforms symmetrically distributed over both posterior quadrants. ACTIVATION: Hyperventilation: Not performed. Photic stimulation: Symmetric driving seen. Sleep: Drowsy. ABNORMALITIES: None. IMPRESSION: Normal EEG. No epileptiform activity was present. No seizures were recorded. MMODL / IJN: [id number] / MTDD
== END | disposition home or self-care (01) ==
LOC: NEUROMAIN 08:55
PROVIDERS: ATTEND Family Medicine
DX: G40.909 Epilepsy, unspecified, not intractable, without status epilepticus (principal)
CPT/HCPCS: 95819

== ENCOUNTER → 2020-03-17 | Outpatient (CLI) | payer BC ==
--- NOTE | 2020-03-19 10:17 | MM ---
Reason for exam: screening (asymptomatic). Last mammogram was performed 1 year ago. History: Patient is postmenopausal. Benign MG stereo VAD BX RT of the right breast, September 11, 2014. Physical Findings: A clinical breast exam by your physician is recommended on an annual basis and results should be correlated with mammographic findings. MG Screening Mammo w CAD Bilateral CC and MLO view(s) were taken. Prior study comparison: March 12, 2019, bilateral MG screening mammo w CAD. December 04, 2016, bilateral MG screening mammo w CAD. The breast tissue is heterogeneously dense. This may lower the sensitivity of mammography. Previous mammotome biopsy in the right breast. There is chronic nodularity in the right breast. Dense tissues anteriorly on a background of scattered densities. Increasing grouped calcifications at the site of two small low density nodules on the right, suspect degenerating fibroids. Magnification view recommended. ASSESSMENT: Incomplete: need additional imaging evaluation, BI-RAD 0 RECOMMENDATION: Special view mammogram of the right breast. (magnification) If lesion persists on supplemental views, image directed ultrasound is recommended. [facility] will attempt to contact patient to return for supplemental views and ultrasound if indicated.
== END | disposition home or self-care (01) ==
LOC: RADMAMWWP 16:11
PROVIDERS: ATTEND Family Medicine
DX: Z12.31 Encounter for screening mammogram for malignant neoplasm of breast (principal)
CPT/HCPCS: 77067

== ENCOUNTER → 2020-03-23 | Outpatient (CLI) | payer BC ==
--- NOTE | 2020-03-23 10:15 | MM ---
Reason for exam: additional evaluation requested from abnormal screening. Last mammogram was performed less than 1 month ago. History: Patient is postmenopausal. Benign MG stereo VAD BX RT of the right breast, September 11, 2014. Physical Findings: Nurse did not find any significant physical abnormalities on exam. MG Work Up Mamm w CAD RT CC with magnification, MLO with magnification, and ML view(s) were taken of the right breast. Prior study comparison: March 17, 2020, bilateral MG screening mammo w CAD. March 12, 2019, bilateral MG screening mammo w CAD. Finding: There are two intermediate concern, suspicious 2mm and 4 mm equal density (isodense), round masses located 5 cm and 11 cm from the nipple in the upper outer quadrant of the right breast. New finding since March 17, 2020 and March 12, 2019. These results were verbally communicated with the patient and result sheet given to the patient on 03/23/20. ASSESSMENT: Incomplete: need additional imaging evaluation, BI-RAD 0 RECOMMENDATION: Ultrasound of the right breast.
--- NOTE | 2020-03-23 10:18 | USB ---
Reason for exam: additional evaluation requested from abnormal screening. History: Patient is postmenopausal. Benign MG stereo VAD BX RT of the right breast, September 11, 2014. US Breast Workup Limited RT Right limited breast ultrasound including focal area of concern, retroareolar and axilla demonstrates a 0.6 x 0.2 x 0.4cm oval, solid, hypoechoic lesion at 11 o'clock. These results were verbally communicated with the patient and result sheet given to the patient on 03/23/20. ASSESSMENT: Suspicious, BI-RAD 4 RECOMMENDATION: Stereotactic core biopsy of the right breast. Called Dr. Gómez's office with mammographic findings and has scheduled an appointment for the patient for 04/28/19 at 4:[address] Singh. Biopsy scheduled for 04/05/20 at 8:00. PRELIMINARY REPORT CALLED AND FAXED TO DR. SINGH ON 03/23/20.
== END | disposition home or self-care (01) ==
LOC: RADMAMWWP 07:53
PROVIDERS: ATTEND Family Medicine
DX: R92.8 Other abnormal and inconclusive findings on diagnostic imaging of breast (principal)
CPT/HCPCS: 77065

== ENCOUNTER → 2020-04-14 | Day surgery (SDC) | payer BC ==
[2020-04-14 09:57] VITALS: BP 117/76; PULSE 75; RESP 18; TEMP 98.2
--- NOTE | 2020-04-14 19:15 | MM ---
EXAMINATION TYPE: MG stereo VAD BX RT DATE OF EXAM: 04/14/2020 COMPARISON: 03/23/2020 CLINICAL HISTORY: 64-year-old female referred for to site stereotactic core needle biopsy of the righ t breast for grouped microcalcifications. TECHNIQUE: Stereotactic guided core biopsy of the right breast. FINDINGS: The procedure of stereotactic guided core biopsy was explained to the patient. Benefits, a lternatives, and risks were discussed. An informed consent was then obtained. Site 1: Posterior upper-outer quadrant via a CC from above approach. Biopsy was aborted after initial needle placement demonstrated hematoma formation displacing the calcifications from the intended tar get site. When the biopsy needle was withdrawn in order to retarget, excessive bleeding was encounter ed. The patient was removed from compression and placed supine. 10 to 15 minutes of direct compressio n was applied and hemostasis obtained. As both groups of calcifications have a similar appearance, if site 2 results return benign, six-month follow-up can be performed of these site 1 microcalcificatio ns. Site 2: 6:00 central microcalcifications from a CC from below approach. I performed the localization followed by the remainder of the procedure. A vacuum assisted biopsy gun was used to obtain 5 core s amples. Targeted calcifications are identified in specimen mammogram. However, post biopsy mammogram shows ap proximately 3 cm of inferior clip migration relative to the targeted area of concern on the preproced ure images. Postprocedure mammogram also shows successful abatement of the upper outer quadrant hematoma. The patient tolerated the procedure well without any immediate complication. The patient was kept in the radiology department for short stay after the procedure and then discharged home in stable condi tion. IMPRESSION: 1. SITE 1 BIOPSY OF THE POSTERIOR UOQ MICROCALCIFICATIONS ABORTED AFTER HEMATOMA FORMATION AND EXCESS JB BLEEDING. GIVEN THAT THESE MICROCALCIFICATIONS HAVE A SIMILAR MORPHOLOGY TO SITE 2 MICROCALCIFICA TIONS, A 6 MONTH FOLLOW-UP CAN BE PERFORMED IF PATHOLOGY RETURNS BENIGN RESULTS. 2. SUCCESSFUL, UNCOMPLICATED STEREOTACTIC GUIDED CORE BIOPSY OF THE MORE ANTERIOR 6:00 CENTRAL MICROC ALCIFICATIONS. FULL PATHOLOGY RESULTS TO FOLLOW. NOTE 3 CM OF INFERIOR CLIP MIGRATION.
== END ==
LOC: RADMAMWWP 04-05 06:59
PROVIDERS: ATTEND Surgery
DX: R92.8 Other abnormal and inconclusive findings on diagnostic imaging of breast (principal)
CPT/HCPCS: 19081; A4648; J2001; 88305

== ENCOUNTER → 2020-05-17 | Outpatient (CLI) | payer BC ==
[2020-05-17 22:55] LABS: HCT 35.2 % (37.2-46.3); HGB 10.3 g/dL (12.0-15.0); MCH 22.7 pg (27.0-32.0); MCHC 29.3 g/dL (32.0-37.0); MCV 77.7 fL (80.0-97.0); Mean Platelet Volume 12.8 fL (9.5-12.2); Platelet Count 316 X 10*3/uL (140-440); RBC 4.53 X 10*6/uL (4.10-5.20); RDW 14.9 % (11.5-14.5)
[2020-05-18 01:53] LABS: African American GFR (CKD) 91.6 (60.0-200.0); Albumin 4.6 g/dL (3.80-4.90); Anion Gap 8.7 mmol/L (4.00-12.00); Calcium 9.3 mg/dL (8.7-10.3); Carbon Dioxide 26.3 mmol/L (21.6-31.8); Globulin 2.3 g/dL (1.6-3.3); Potassium 5.1 mmol/L (3.5-5.5); Total Protein 6.9 g/dL (6.2-8.2)
[2020-05-18 04:30] LABS: Hemoglobin A1C 5.8 % (4.0-6.0)
[2020-05-18 05:22] LABS: INR 0.95 (0.90-1.11); Partial Thromboplastin Time 26.2 sec (23.5-31.0); Prothrombin Time 10.4 sec (9.9-11.9)
== END | disposition home or self-care (01) ==
LOC: LABWHC1 15:37
PROVIDERS: ATTEND Physician Assistant
DX: Z01.818 Encounter for other preprocedural examination (principal); M19.90 Unspecified osteoarthritis, unspecified site; D64.9 Anemia, unspecified
CPT/HCPCS: 36415; 80053; 83036; 85027; 85610; 85730; 86850; 86900; 86901; 87070

== ENCOUNTER → 2020-07-15 | Outpatient (CLI) | payer BC ==
--- NOTE | 2020-07-16 13:18 | MM ---
Reason for exam: follow-up at short interval from prior study. Last mammogram was performed 4 months ago. History: Patient is postmenopausal. Benign MG stereo VAD BX RT of the right breast, April 14, 2020. Benign MG stereo VAD BX RT of the right breast, September 11, 2014. Physical Findings: Nurse did not find any significant physical abnormalities on exam. MG 3D Diag Mammo W/Cad RT Spot compression CC, spot compression MLO, and XCCL view(s) were taken of the right breast. Prior study comparison: March 23, 2020, right breast MG work up mamm w CAD RT. March 17, 2020, bilateral MG screening mammo w CAD. There are scattered fibroglandular densities. Finding: There are punctate, round, grouped/clustered calcifications in the right breast x 2. Previous mammotome biopsy in the right breast x 2. No significant changes in finding since March 23, 2020 and March 17, 2020. These results were verbally communicated with the patient and result sheet given to the patient on 07/15/20. ASSESSMENT: Benign, BI-RAD 2 RECOMMENDATION: Follow-up diagnostic mammogram of both breasts in 8 months. Back on schedule for March 2021.
--- NOTE | 2020-07-16 13:19 | USB ---
Reason for exam: additional evaluation requested from abnormal screening. History: Patient is postmenopausal. Benign MG stereo VAD BX RT of the right breast, April 14, 2020. Benign MG stereo VAD BX RT of the right breast, September 11, 2014. US Breast Limited RT Technologist: Hailey Sinclair Right limited breast ultrasound including focal area of concern, retroareolar and axilla demonstrates a 0.7 x 0.5 x 0.3cm hypoechoic lesion at 11 o'clock. Scanned 6-12 o'clock. These results were verbally communicated with the patient and result sheet given to the patient on 07/15/20. ASSESSMENT: Benign, BI-RAD 2 RECOMMENDATION: Follow-up diagnostic mammogram of both breasts in 8 months. Back on schedule for March 2021.
== END | disposition home or self-care (01) ==
LOC: RADMAMWWP 12:43
PROVIDERS: ATTEND Surgery
DX: R92.1 Mammographic calcification found on diagnostic imaging of breast (principal); N64.59 Other signs and symptoms in breast; Z78.0 Asymptomatic menopausal state
CPT/HCPCS: 77061; 77065

== ENCOUNTER → 2021-09-28 | Outpatient (CLI) | payer MEDICARE ==
--- NOTE | 2021-09-28 10:40 | MM ---
Reason for Exam: Follow-up at short interval from prior study. Last mammogram was performed 1 year(s) and 6 month(s) ago. Patient History: Menarche at age 16. First Full-Term at age 31. Postmenopausal. 04/14/2020, Benign Core Biopsy on the right side. 09/11/2014, Benign Core Biopsy on the right side. Risk Values: Dari 5 year model risk: 2.5%. NCI Lifetime model risk: 9.7%. Tissue Density: There are scattered fibroglandular densities. Findings: Analyzed By CAD. Biopsy clip right breast redemonstrated. Occasional scattered and grouped benign-appearing calcifications bilaterally redemonstrated. Stable small nodularity in the left breast on MLO view. No distortion or new worrisome group of microcalcifications. Overall Assessment: Benign, BI-RAD 2 Management: Screening Mammogram of both breasts in 1 year. A clinical breast exam by your physician is recommended on an annual basis and results should be correlated with mammographic findings. This exam should not preclude additional follow-up of suspicious palpable abnormalities. Results were given to the patient verbally at the time of exam. Electronically signed and approved by: Víctor Stockton M.D.
== END | disposition home or self-care (01) ==
LOC: RADMAMWWP 09:59
PROVIDERS: ATTEND Family Medicine
DX: R92.8 Other abnormal and inconclusive findings on diagnostic imaging of breast (principal)
CPT/HCPCS: 77066; G0279; 77062

== ENCOUNTER → 2022-05-15 | Outpatient (CLI) | payer MEDICARE ==
--- NOTE | 2022-05-17 11:20 | MR ---
EXAMINATION TYPE: MR brain wo/w con DATE OF EXAM: 05/15/2022 9:02 AM CLINICAL INDICATION:Female, 66 years old with history of R25.1 TREMOR, UNSPECIFIED; Tremors COMPARISON: None TECHNIQUE: Multi planar, multi sequence imaging was performed through the brain including: T1, T2, In version recovery, susceptibility weighted imaging and gradient echo imaging and Diffusion weighted im aging. The patient was then given intravenous contrast and multi planar, T1 fat-saturation images wer e obtained. IV Contrast: 8.5 cc Gadavist FINDINGS: The copeland-white junctions, ventricular system, basal cisterns appear unremarkable. Diffusion-weighted imaging shows no evidence of restricted diffusion to suggest acute/subacute infarct. Intracranial art erial flow voids are maintained. Midline structures show no abnormality. Scattered foci of high T2 si gnal intensity are seen within the periventricular white matter. The susceptibility weighted images d o not reveal any evidence for micro-hemorrhage. There is blooming artifact within the anterior aspect of the right putamen measuring 9 x 7. After administration of gadolinium, no abnormal enhancement is seen. The bone marrow signal is within normal limits. Paranasal sinuses and mastoid air cells: No significant paranasal sinus disease. Visualized orbits: Orbital contents are intact. IMPRESSION: 1. No evidence of intracranial mass, acute/subacute infarct, or abnormal enhancement. 2. Nonspecific right putamen blooming artifact suggesting mineralization. 3. Nonspecific white matter changes, likely related to small vessel ischemic disease
== END | disposition home or self-care (01) ==
LOC: RADMRIMAIN 07:50
PROVIDERS: ATTEND Family Medicine
DX: R90.82 White matter disease, unspecified (principal); R25.1 Tremor, unspecified
CPT/HCPCS: 70553; A9585

== ENCOUNTER → 2022-08-14 | Outpatient (CLI) | payer MEDICARE ==
[2022-08-14 19:31] LABS: Anion Gap 12.4 mmol/L (10.00-18.00); BUN/Creat Ratio 16.67 Ratio (12.00-20.00); Blood Urea Nitrogen 14.8 mg/dL (9.0-27.0); Calcium 8.9 mg/dL (8.7-10.3); Carbon Dioxide 23.9 mmol/L (20.0-27.5); Non-African American GFR(CKD) 68.2 (60.0-200.0); Potassium 4.4 mmol/L (3.5-5.5)
== END | disposition home or self-care (01) ==
LOC: LABWHC1 10:44
PROVIDERS: ATTEND Student in an Organized Health Care Education/Training Program
DX: I87.2 Venous insufficiency (chronic) (peripheral) (principal); I47.1 Supraventricular tachycardia; G47.33 Obstructive sleep apnea (adult) (pediatric); R42 Dizziness and giddiness; R00.2 Palpitations
CPT/HCPCS: 36415; 80048; 83735; 84443

== ENCOUNTER → 2022-09-29 | Outpatient (CLI) | payer MEDICARE ==
--- NOTE | 2022-10-02 07:49 | MM ---
Reason for Exam: Screening (asymptomatic). Last screening mammogram was performed 12 month(s) ago. Patient History: Menarche at age 16. First Full-Term at age 31. Postmenopausal. 04/14/2020, Benign Core Biopsy on the right side. 09/11/2014, Benign Core Biopsy on the right side. Risk Values: Dari 5 year model risk: 2.5%. NCI Lifetime model risk: 9.4%. Prior Study Comparison: 03/23/2020 Right Diagnostic Mammogram, [facility]. 07/15/2020 Right Diagnostic Mammogram, [facility]. 09/28/2021 Bilateral MG 3D diag mammo w/cad [facility], [facility]. Tissue Density: The breast tissue is heterogeneously dense. This may lower the sensitivity of mammography. Findings: Analyzed By CAD. Right breast biopsy clips. There is no suspicious group of microcalcifications or new suspicious mass in either breast.Right breast biopsy clips. Benign-appearing calcific patient's. There is no suspicious group of microcalcifications or new suspicious mass in either breast. Overall Assessment: Benign, BI-RAD 2 Management: Screening Mammogram of both breasts in [address] [facility] will attempt to contact patient to return for supplemental views and ultrasound if indicated. Patient should continue monthly self-breast exams. A clinical breast exam by your physician is recommended on an annual basis. This exam should not preclude additional follow-up of suspicious palpable abnormalities. Note on Dari scores and lifetime risk: 1. A Dari score greater than 3% is considered moderate risk. If this is the case, consider specialist referral to assess eligibility for a risk reducing agent. 2. If overall lifetime risk for the development of breast cancer is 20% or higher, the patient may qualify for future screening with alternating mammogram and breast MRI. Electronically signed and approved by: Quang Moraes DO
== END | disposition home or self-care (01) ==
LOC: RADMAMWWP 10:14
PROVIDERS: ATTEND Family Medicine
DX: Z12.31 Encounter for screening mammogram for malignant neoplasm of breast (principal); Z78.0 Asymptomatic menopausal state
CPT/HCPCS: 77063; 77067

== ENCOUNTER → 2022-12-06 | Outpatient (CLI) | payer MEDICARE ==
--- NOTE | 2022-12-06 21:41 | MR ---
EXAMINATION TYPE: MR shoulder RT wo con DATE OF EXAM: 12/06/2022 COMPARISON: Outside radiographs 11/21/2022 HISTORY: 67-year-old female M25.511, Right shoulder pain x 2 mos, no trauma. TECHNIQUE: Multiplanar, multisequence imaging of the right shoulder is performed without contrast. FINDINGS: There is abnormal signal involving the intracapsular portion of the long head biceps tendon. This cou ld represent tendinosis or partial tear. The extracapsular portion remains appropriately situated joann ng the bicipital groove with mild tenosynovial fluid. Heterogeneity of the subscapularis tendon with a small partial-thickness tear of the superior most fi bers. The majority of the tendon is intact. There is moderate to severe degenerative change of the acromioclavicular joint with joint space narro wing, subchondral cystic change, articular surface irregularity, and prominent marginal spurring. The re is mass effect on the underlying myotendinous junction of the supraspinatus. There is bursal sided fraying throughout the supraspinatus tendon. Prominent areas of intrasubstance changes present. Suspect shallow articular sided tear of the mid supraspinatus tendon fibers measurin g 1.1 cm AP and 7 mm long. No high-grade partial or full-thickness tear is identified. The infraspinatus tendon also shows heterogeneity and some minimal intrasubstance change but no discr ete tear. No atrophy of the rotator cuff musculature. Mild effusion within the subacromial/subdeltoid bursa. Mild to moderate thinning of superior humeral head articular cartilage. There may be some abnormal si gnal of the glenoid labrum along the posterior superior quadrant, coronal image 17. No para labral cy st. Small glenohumeral joint effusion which may be physiologic. No Hill-Sachs deformity or os acromiale. No suspicious bone marrow replacement. IMPRESSION: 1. Diffuse rotator cuff tendinosis. There is bursal sided fraying of the supraspinatus tendon and pos sible shallow articular sided tear of the mid supraspinatus tendon fibers measuring 7 x 11 mm. No hig h-grade partial or full-thickness rotator cuff tear seen. 2. Moderate to severe AC joint OA. Inferior spurring may contribute to subacromial impingement. A mil d subacromial/subdeltoid bursal effusion is likely reactive. 3. Marked tendinosis versus partial tear of the intracapsular long head biceps tendon. 4. Possible small SLAP tear.
== END | disposition home or self-care (01) ==
LOC: RADMRIMAIN 06:59
PROVIDERS: ATTEND Orthopaedic Surgery
DX: M19.011 Primary osteoarthritis, right shoulder (principal); M67.813 Other specified disorders of tendon, right shoulder; M25.811 Other specified joint disorders, right shoulder

== ENCOUNTER → 2022-12-22 | Outpatient (CLI) | payer MEDICARE ==
[2022-12-22 20:15] LABS: Anion Gap 11.2 mmol/L (4.00-12.00); Carbon Dioxide 24.8 mmol/L (21.6-31.8); Potassium 4.7 mmol/L (3.5-5.5)
[2022-12-22 20:17] LABS: Basophils # (A) 0.09 X 10*3/uL (0.00-0.10); Basophils % (A) 1.4 %; Eosinophils % (A) 4.6 %; HCT 43.9 % (37.2-46.3); HGB 13.5 d/dL (12.0-15.0); Lymphocytes # (A) 2.14 X 10*3/uL (0.90-5.00); Lymphocytes % (A) 32.6 %; MCH 26.1 pg (27.0-32.0); MCHC 30.8 d/dL (32.0-37.0); MCV 84.9 FL (80.0-97.0); Mean Platelet Volume 12.8 FL (9.5-12.2); Monocytes # (A) 0.64 X 10*3/uL (0.20-1.00); Monocytes % (A) 9.8 %; NRBC Per 100 WBC 0 X 10*3/uL (0.00-0.01); Neutrophils # (A) 3.38 X 10*3/uL (1.80-7.70); Neutrophils % (A) 51.4 %; Platelet Count 326 X 10*3/uL (140-440); RBC 5.17 X 10*6/uL (4.10-5.20); RDW 14.2 % (11.5-14.5); WBC 6.56 X 10*3/uL (4.50-10.00)
== END | disposition home or self-care (01) ==
LOC: LABPAT 12:01
PROVIDERS: ATTEND Orthopaedic Surgery
DX: Z01.812 Encounter for preprocedural laboratory examination (principal); M75.41 Impingement syndrome of right shoulder
CPT/HCPCS: 80051; 85025

== ENCOUNTER → 2024-01-22 | Outpatient (CLI) | payer MEDICARE ==
--- NOTE | 2024-01-23 09:15 | MM ---
Reason for Exam: Screening (asymptomatic). Last mammogram was performed 1 year(s) and 4 month(s) ago. Patient History: Menarche at age 16. First Full-Term at age 31. Postmenopausal. 04/14/2020, Benign Core Biopsy on the right side. 09/11/2014, Benign Core Biopsy on the right side. Risk Values: Dari 5 year model risk: 2.5%. NCI Lifetime model risk: 9.0%. Prior Study Comparison: 07/15/2020 Right Diagnostic Mammogram, [facility]. 09/28/2021 Bilateral MG 3D diag mammo w/cad [facility], [facility]. 09/29/2022 Bilateral MG 3D screening mammo w/cad, [facility]. Tissue Density: The breasts are heterogeneously dense, which may obscure small masses. Findings: Analyzed By CAD. There is no suspicious group of microcalcifications or new suspicious mass in either breast. Overall Assessment: Negative, BI-RAD 1 Management: Screening Mammogram of both breasts in 1 year. . Patient should continue monthly self-breast exams. A clinical breast exam by your physician is recommended on an annual basis. This exam should not preclude additional follow-up of suspicious palpable abnormalities. Note on Dari scores and lifetime risk: 1. A Dari score greater than 3% is considered moderate risk. If this is the case, consider specialist referral to assess eligibility for a risk reducing agent. 2. If overall lifetime risk for the development of breast cancer is 20% or higher, the patient may qualify for future screening with alternating mammogram and breast MRI. [facility], , 01/23/2024 9:12 AM. Electronically signed and approved by: Octavio Falcon M.D. Radiologis
== END | disposition home or self-care (01) ==
LOC: RADMAMWWP 11:41
PROVIDERS: ATTEND Family Medicine
DX: Z12.31 Encounter for screening mammogram for malignant neoplasm of breast
CPT/HCPCS: 77063; 77067